=== PATIENT | male | born 1985 | race Two or more races ===

== ENCOUNTER 2017-04-10 08:31 | Emergency (ER) | payer SELFPAY ==
[~2017-04-10] VITALS: Ht 167.6 cm; Wt 86.2 kg
[2017-04-10 08:43] VITALS: BP 147/100
[2017-04-10] MEDS ORDERED: IBUPROFEN600 MG ORAL (09:55)
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
[2017-04-10 10:30] VITALS: BP 141/86
[2017-04-10 10:31] VITALS: BP 141/86
[2017-04-10] MEDS ORDERED: Tetanus/Diptheria/Pertussis Vaccine 0.5ml Syr IM ONE (10:45)
--- NOTE | 2017-04-10 12:10 | Diagnostic Imaging Report ---
Indication: PAIN Technique: 3 views of the left elbow Comparison: none Findings: No acute fractures. No dislocations. No joint effusion. Joint spaces are preserved. Normal mineralization. No radiopaque foreign body. Impression: Negative
--- NOTE | 2017-04-10 12:10 | Diagnostic Imaging Report ---
Indications: PAIN Technique: Two views of the left femur Comparison: None Findings: No acute fractures. No dislocations. Normal mineralization. Impression: Negative
== END 2017-04-10 11:01 | disposition home or self-care (01) ==
LOC: EDBD 08:31 → EMR 09:08
DX: M79.652 Pain in left thigh (principal); M25.522 Pain in left elbow; T14.8XXA Other injury of unspecified body region, initial encounter; V43.52XA Car driver injured in collision with other type car in traffic accident, initial encounter; Y93.9 Activity, unspecified; Y92.410 Unspecified street and highway as the place of occurrence of the external cause; Z23 Encounter for immunization
CPT/HCPCS: 90471; 90715; 99284